=== PATIENT | female | born 1995 | race Caucasian/White ===

== ENCOUNTER → 2016-11-22 | Outpatient (CLI) | payer BC ==
--- NOTE | 2016-11-22 14:35 | DIAGNOSTIC IMAGING REPORT ---
PELVIC ULTRASOUND, TRANSABDOMINAL AND TRANSVAGINAL HISTORY: Pain. Ovarian cyst. E28.2 CPOS (polycystic ovarian syndrome)[id number] COMPARISON: None. FINDINGS: Uterus: Maximum dimension 7.2 cm. Endometrial stripe: 2 mm Right ovary: 2.7 cm maximum dimension. Normal vascular flow. Left ovary: 3.0 cm maximum dimension. 5 cm exophytic cyst. Miscellaneous:No pelvic free fluid. IMPRESSION: 5 cm left ovarian cyst. Otherwise negative pelvic ultrasound. Electronically signed by: Kang Nicolas M.D. 11/22/2016 2:33 PM Dictated Date/Time: 11/22/2016 2:22 PM
--- NOTE | 2016-11-23 07:45 | DIAGNOSTIC IMAGING REPORT ---
PELVIC ULTRASOUND, TRANSABDOMINAL AND TRANSVAGINAL HISTORY: Pain. Ovarian cyst. E28.2 CPOS (polycystic ovarian syndrome)[id number] COMPARISON: None. FINDINGS: Uterus: Maximum dimension 7.2 cm. Endometrial stripe: 2 mm Right ovary: 2.7 cm maximum dimension. Normal vascular flow. Left ovary: 3.0 cm maximum dimension. 5 cm exophytic cyst. Miscellaneous:No pelvic free fluid. IMPRESSION: 5 cm left ovarian cyst. Otherwise negative pelvic ultrasound. Electronically signed by: Kang Nicolas M.D. 11/22/2016 2:33 PM Dictated Date/Time: 11/22/2016 2:22 PM
== END | disposition home or self-care (01) ==
LOC: C.ULTR 12:38
PROVIDERS: ATTEND Internal Medicine Endocrinology, Diabetes & Metabolism
DX: E28.2 Polycystic ovarian syndrome (principal)

== ENCOUNTER → 2016-12-02 | Outpatient (CLI) | payer BC ==
[2016-12-02 16:46] LABS: BASO % 0.3 %; BASO ABS # 0.02 K/uL (0-0.2); COMPLETE YES; EOS % 1.5 %; IG% 0.1 %; LYMPH ABS # 2.67 K/uL (1.2-3.4); MEAN CORPUSCULAR HEMOGLOBIN 30.4 pg (25-34); MEAN CORPUSCULAR HGB CONC 34.1 g/dl (32-36); MEAN PLATELET VOLUME 9.1 fL (7.4-10.4); MONO % 7.9 %; NEUT % 51.2 %; PLATELET COUNT 255 K/uL (130-400); RED BLOOD COUNT 4.38 M/uL (4.2-5.4); WHITE BLOOD COUNT 6.84 K/uL (4.8-10.8)
[2016-12-02 17:56] LABS: ALT/SGPT 18 U/L (12-78); BLOOD UREA NITROGEN 9 mg/dl (7-18); BUN/CREATININE RATIO 10.1 (10-20); CALCIUM 8.9 mg/dl (8.5-10.1); CARBON DIOXIDE 26 mmol/L (21-32); CHLORIDE 108 mmol/L (98-107); CREATININE 0.86 mg/dl (0.60-1.20); GLUCOSE 85 mg/dl (70-99); MAGNESIUM 2.3 mg/dl (1.8-2.4); POTASSIUM 3.6 mmol/L (3.5-5.1); SODIUM 141 mmol/L (136-145)
[2016-12-02 18:07] LABS: ALB/GLOB RATIO 1.3 (0.9-2); ALKALINE PHOSPHATASE 45 U/L (45-117); AST/SGOT 7 U/L (15-37)
--- NOTE | 2016-12-06 10:44 | CODING QUERY MEDICAL NECESSITY ---
CQSUPPORTING DIAGNOSIS NEEDED A supporting diagnosis is required for the test/procedure performed on this patient in order for us to be reimbursed by the patient's insurance. Please provide a supporting diagnosis for the following test/procedure listed below next to the test name along with your signature. *If there is no additional diagnosis for this patient that would support the following test/procedure please document that below next to the test/procedure. Test(s)/Procedure(s) that require a supporting diagnosis: DOS 12/02/16 VITAMIN D VITAMIN B12 Provider Signature: Date: Thank you Norma Li [facility] Information Management Once completed, please kindly fax back to [phone] For questions please call [phone]
== END | disposition home or self-care (01) ==
LOC: C.LAB1850 15:44
PROVIDERS: ATTEND Internal Medicine Endocrinology, Diabetes & Metabolism
DX: E28.2 Polycystic ovarian syndrome (principal); R19.7 Diarrhea, unspecified; R63.6 Underweight; M79.1 Myalgia; R63.4 Abnormal weight loss

== ENCOUNTER → 2017-01-17 | Outpatient (CLI) | payer BC ==
--- NOTE | 2017-01-17 12:49 | DIAGNOSTIC IMAGING REPORT ---
PELVIC COMPLETE NON OB CLINICAL HISTORY: E28.2 CPOS OVARIAN CYST COMPARISON STUDY: 11/22/2016 FINDINGS: The uterus measured 7.4 cm. The endometrial stripe measured 6 mm. The right ovary measured 3.3 cm with several subcentimeter follicular cyst. Normal vascular flow.. The left ovary measured 4.0 x 5.0 cm with a 5.0 cm left ovarian cyst. This is unchanged volume from the prior study.. There is no ultrasonographic evidence of ovarian torsion. It should be noted that ovarian torsion can be present with normal Doppler ultrasonographic findings. There was no evidence of pathologic free pelvic fluid. IMPRESSION: 1. Dominant left ovarian cyst unchanged in volume compared to the prior study. 2. Current maximum dimension is 5 cm 3. Several small right ovarian follicular cyst also unchanged. The above report was generated using voice recognition software. It may contain grammatical, syntax or spelling errors. Electronically signed by: Kang Nicolas M.D. 01/17/2017 12:48 PM Dictated Date/Time: 01/17/2017 12:44 PM
== END | disposition home or self-care (01) ==
LOC: C.ULTR 11:43
PROVIDERS: ATTEND Internal Medicine Endocrinology, Diabetes & Metabolism
DX: E28.2 Polycystic ovarian syndrome (principal)

== ENCOUNTER → 2017-08-17 | Outpatient (CLI) | payer BC | END | disposition home or self-care (01) | LOC: C.LABSPEC 13:39 | PROVIDERS: ATTEND Obstetrics & Gynecology | DX: Z01.419 Encounter for gynecological examination (general) (routine) without abnormal findings (principal) ==

== ENCOUNTER → 2017-08-17 | Outpatient (CLI) | payer BC | END | disposition home or self-care (01) | LOC: C.PAPS 14:54 | PROVIDERS: ATTEND Obstetrics & Gynecology | DX: Z01.419 Encounter for gynecological examination (general) (routine) without abnormal findings (principal) ==